=== PATIENT | male | born 2000 | race Caucasian/White ===

== ENCOUNTER 2021-03-04 15:37 | Day surgery (SDC) | payer OTHER ==
[~2021-03-04] VITALS: Ht 170.2 cm; Wt 83.9 kg
[2021-03-04 16:57] VITALS: BP 126/71; PULSE 76; TEMP 98.6
[2021-03-04] MEDS ORDERED: NAPROSYN500 MG PO (17:29)
[2021-03-04] MEDS ORDERED: ZOFRAN8 MG PO (17:31)
[2021-03-04] MEDS ORDERED: PERCOCET 325 MG1 TA2 PO ×2 (17:33→17:34)
[2021-03-04] MEDS ORDERED: FLOMAX 0.40.4 MG/CAP PO (17:35)
[2021-03-04 19:15] VITALS: BP 127/75; PULSE 65; TEMP 98.5
--- NOTE | 2021-03-04 19:15 | NUR ---
Pt. to the floor from PACU at this time. Bed side nurse hand off with RIMMA Escalera. Pt. is A&OX3, assessment complete. INT to lt. hand patent. Pt. reports needing to urinate. Pt. able to ambulate to the bathroom independently. Post op vitals stable. Will monitor.
[2021-03-04 19:30] VITALS: BP 125/82; PULSE 65; TEMP 98.5
[2021-03-04 19:45] VITALS: BP 118/70; PULSE 65
--- NOTE | 2021-03-04 20:30 | NUR ---
Pt. has met discharge criteria. Pt. given discharge paperwork and reviewed with pt. Pt. voices understanding. INT discontinued from Lt. hand. Pt. dressed and escorted out by NATHAN Baldwin.
[2021-03-04 21:29] VITALS: BP 115/72; PULSE 64; TEMP 98.2
== END 2021-03-04 20:50 ==
LOC: SDCO 15:37 → SURG 19:15 → SDCO 20:50
DX: N20.1 Calculus of ureter (principal); Z20.822 Contact with and (suspected) exposure to COVID-19
CPT/HCPCS: OP; C1769; J0690; J1100; J1885; J2405; J2704; J3010; J7120; Q9967